=== PATIENT | male | born 1960 | race Caucasian/White ===

== ENCOUNTER 2017-03-22 13:12 | Emergency (ER) | payer OTHER ==
[2017-03-22] MEDS ORDERED: Diphtheria,Pertussis(Acell),Tetanus Vaccine 0.5 ML SDV inactive IM ONE (13:48)
[2017-03-22] MEDS ORDERED: Cephalexin 500 MG Cap ONE (14:00)
--- NOTE | 2017-03-22 14:07 | EDM.PDOC ---
ED HPI GENERAL MEDICAL PROBLEM - General Chief Complaint: General Stated Complaint: FISH HOOK Time Seen by Provider: 03/22/17 13:30 Source of Information: Reports: Patient History Limitations: Reports: No Limitations - History of Present Illness INITIAL COMMENTS - FREE TEXT/NARRATIVE: Patient is a 56 year old man who was fishing today and he had a treble hook caught in his finger that he cannot get out. It has been 9 years since his last tetanus shot. No other complaints. Onset: Today Onset Date: 03/22/17 Onset Time: 12:30 Duration: Hour(s): (1) Location: Reports: Upper Extremity, Right (Right middle finger distal phalange.) Quality: Reports: Sharp Severity: Mild Improves with: Reports: None Worsens with: Reports: None Context: Reports: Other (Was fishing.) Associated Symptoms: Reports: No Other Symptoms - Related Data Allergies Allergy/AdvReac Type Severity Reaction Status Date / Time No Known Allergies Allergy Verified 03/22/17 13:47 ED ROS GENERAL - Review of Systems Review Of Systems: See Below Constitutional: Reports: No Symptoms HEENT: Reports: No Symptoms Respiratory: Reports: No Symptoms Cardiovascular: Reports: No Symptoms Endocrine: Reports: No Symptoms GI/Abdominal: Reports: No Symptoms : Reports: No Symptoms Musculoskeletal: Reports: No Symptoms Skin: Reports: No Symptoms Neurological: Reports: No Symptoms Psychiatric: Reports: No Symptoms Hematologic/Lymphatic: Reports: No Symptoms Immunologic: Reports: No Symptoms ED EXAM, GENERAL - Physical Exam Exam: See Below Exam Limited By: No Limitations General Appearance: Alert, WD/WN, No Apparent Distress Eye Exam: Bilateral Eye: Normal Fundi, Normal Inspection Ears: Normal External Exam, Normal Canal, Hearing Grossly Normal, Normal TMs Ear Exam: Bilateral Ear: Auricle Normal, Canal Normal, TM normal Nose: Normal Inspection, Normal Mucosa, No Blood Throat/Mouth: Normal Inspection, Normal Lips, Normal Teeth, Normal Gums, Normal Oropharynx, Normal Voice, No Airway Compromise Head: Atraumatic, Normocephalic Neck: Normal Inspection, Supple, Non-Tender, Full Range of Motion Respiratory/Chest: No Respiratory Distress, Lungs Clear, Normal Breath Sounds, No Accessory Muscle Use, Chest Non-Tender Cardiovascular: Normal Peripheral Pulses, Regular Rate, Rhythm, No Edema, No Gallop, No JVD, No Murmur, No Rub GI/Abdominal: Normal Bowel Sounds, Soft, Non-Tender, No Organomegaly, No Distention, No Abnormal Bruit, No Mass Extremities: Other (Right middle finger has a treble fish hook in it.) Neurological: Alert, Oriented, CN II-XII Intact, Normal Cognition, Normal Gait, Normal Reflexes, No Motor/Sensory Deficits Psychiatric: Normal Affect, Normal Mood Skin Exam: Warm, Dry, Intact, Normal Color, No Rash ED GENERAL MEDICAL PROCEDURES - Additional/Other Procedure(s) Other (Free Text) Procedure(s): After sterile prep with betadine x 3, I anesthetized the end of the right middle finger with 2 ml of plain 2% lidocaine. I cut the fish hook with a wire rope fabrication supervisor and then used a mosquito forcep to get it out intact. Course - Vital Signs Text/Narrative:: Uneventful ED course. Once the fish hook was removed bacitracin and a band aid was used to treat the wound. He was also given a Dtap shot and he was given Cephalexin 500 mg orally two times daily for 10 days to prevent infection. He will follow up with his PCP in [place] if he has any problems next week. - Orders/Labs/Meds Orders: Active Orders 24 hr Category Date Time Status Vaccines to be Administered [RC] PER UNIT ROUTINE Care 03/22/17 13:48 Active Meds: Medications Discontinued Medications Generic Name Dose Route Start Last Admin Trade Name Brittney PRN Reason Stop Dose Admin Diphtheria/Tetanus/Acell Pertussis 0.5 ml 03/22/17 13:48 03/22/17 13:50 Boostrix IM 03/22/17 13:49 0.5 ml .ONCE ONE Administration Departure - Departure Time of Disposition: 14:29 Disposition: Home, Self-Care 01 Clinical Impression: Fish hook injury of finger of right hand - Discharge Information Instructions: Wound Infection, [id number], Cephalexin tablets or capsules Referrals: PCP,None [Primary Care Provider] - Forms: ED Department Discharge Additional Instructions: - Take Cephalexin 500 mg one capsule 2 times a day for 10 days. - Watch for Infection: fever, redness, swelling, increasing pain. If any of these signs/symptoms occur. see your provider. - My Orders Last 24 Hours: My Active Orders 03/22/17 13:48 Vaccines to be Administered [RC] PER UNIT ROUTINE - Assessment/Plan Last 24 Hours: My Active Orders 03/22/17 13:48 Vaccines to be Administered [RC] PER UNIT ROUTINE
[2017-03-22 17:44] VITALS: BP 137/99
== END 2017-03-22 14:07 | disposition home or self-care (01) ==
LOC: LB.ED 13:12
DX: S61.242A Puncture wound with foreign body of right middle finger without damage to nail, initial encounter (principal); Z23 Encounter for immunization; W45.8XXA Other foreign body or object entering through skin, initial encounter
CPT/HCPCS: 90471; 90715; 99283; A9270